=== PATIENT | female | born 1980 ===

== ENCOUNTER 2023-03-04 12:52 | Outpatient (REF) | payer MEDICAID, OTHER, SELFPAY ==
[2023-03-04 15:54] LABS: MANUAL DIFF FLAG NO
[2023-03-04 16:13] LABS: Basophils Percent Auto 0.6 % (0-2); Eosinophils Absolute Auto 0.2 X10*3/uL (0.0-0.4); Eosinophils Percent Auto 4.1 % (0-4); Hematocrit 39.4 % (37.0-47.0); Hemoglobin 13.2 g/dl (12.0-16.0); Imm Gran Abs Auto 0.01 X10*3/uL (0.00-0.03); Imm Gran Pct Auto 0.2 % (0.0-0.4); Lymphocytes Absolute Auto 2.1 X10*3/uL (1.2-4.9); Lymphocytes Percent Auto 43.7 % (20-40); Mean Corpuscular HGB Conc 33.5 g/dl (31.0-35.0); Mean Corpuscular Hemoglobin 33.2 pg (27.0-33.0); Mean Platelet Volume 12.4 fL (9.4-12.3); Monocytes Absolute Auto 0.5 X10*3/uL (0.1-1.2); Monocytes Percent Auto 11.1 % (2-11); Neutrophils Percent Auto 40.3 % (45-73); Platelet Count 159 X10*3/uL (160-400); Red Blood Count 3.98 X10*6/uL (4.20-5.50); Red Cell Distribution Width 10.7 % (11.0-16.0); White Blood Count 4.9 X10*3/uL (4.8-10.8)
[2023-03-04 16:36] LABS: Alanine Aminotransferase 15 U/L (0-31); Albumin Level 4.3 g/dL (3.5-5.0); Alkaline Phosphatase 67 U/L (39-117); Anion Gap 13 (12-20); Aspartate Amino Transferase 24 U/L (5-31); Bilirubin Total 0.4 mg/dL (0.0-1.0); Blood Urea Nitrogen 10 mg/dL (9-16); Carbon Dioxide 25 mmol/L (22-29); Chloride 105 mmol/L (96-108); Estimated Glomerular Filt Rate > 60; Glucose Random 98 mg/dL (60-115); Potassium 3.9 mmol/L (3.3-5.1); Sodium 139 mmol/L (135-145); TSH reflex Free T4 1.72 uIU/mL (0.32-4.0); Total Protein 7.4 g/dL (6.5-8.0)
[2023-03-07 08:09] LABS: Absolute CD3 Count 1592 cells/uL (840-3060); Absolute CD4 Count 603 cells/uL (490-1740); Absolute CD8 Count 966 cells/uL (180-1170); Absolute Lymphocytes 1967 cells/uL (850-3900); CD4 CD8 Ratio 0.62 (0.86-5.00); Percent CD3 Cells 81 % (57-85); Percent CD4 Cells 31 % (30-61); Percent CD8 Cells 49 % (12-42)
[2023-03-07 19:33] LABS: Mumps Virus IgG Antibody >300.00 AU/mL; Rubeola IgG (Measles) >300.00 AU/mL
[2023-03-09 19:48] LABS: HIV RNA PCR Qn Copies <20 DETECTED copies/mL (NOT DETECTED); HIV RNA PCR Qn Log Copies <1.30 DETECTED (NOT DETECTED)
== END 2023-03-04 12:53 | disposition home or self-care (01) ==
LOC: HO.HHCL 12:52
PROVIDERS: Visit Provider Internal Medicine
DX: B20 Human immunodeficiency virus [HIV] disease (principal)
CPT/HCPCS: 36415; 80053; 84443; 85025; 86359; 86360; 86735; 86762; 86765; 86787; 87536

== ENCOUNTER 2024-02-16 09:38 | Outpatient (REF) | payer MEDICAID, OTHER, SELFPAY ==
[2024-02-16 11:10] LABS: MANUAL DIFF FLAG NO
[2024-02-16 11:19] LABS: Basophils Percent Auto 0.6 % (0-2); Eosinophils Absolute Auto 0.2 X10*3/uL (0.0-0.4); Eosinophils Percent Auto 3.6 % (0-4); Hematocrit 38.4 % (37.0-47.0); Hemoglobin 12.9 g/dl (12.0-16.0); Imm Gran Abs Auto 0.01 X10*3/uL (0.00-0.03); Imm Gran Pct Auto 0.2 % (0.0-0.4); Lymphocytes Absolute Auto 1.3 X10*3/uL (1.2-4.9); Lymphocytes Percent Auto 25.3 % (20-40); Mean Corpuscular HGB Conc 33.6 g/dl (31.0-35.0); Mean Corpuscular Hemoglobin 33.6 pg (27.0-33.0); Mean Platelet Volume 12.5 fL (9.4-12.3); Monocytes Absolute Auto 0.9 X10*3/uL (0.1-1.2); Monocytes Percent Auto 17.5 % (2-11); Neutrophils Absolute Auto 2.7 x10*3/uL (2.0-8.3); Neutrophils Percent Auto 52.8 % (45-73); Platelet Count 149 X10*3/uL (160-400); Red Blood Count 3.84 X10*6/uL (4.20-5.50); Red Cell Distribution Width 10.8 % (11.0-16.0)
[2024-02-16 11:57] LABS: Alanine Aminotransferase 13 U/L (0-31); Albumin Level 4.3 g/dL (3.5-5.0); Alkaline Phosphatase 72 U/L (39-117); Anion Gap 13 (12-20); Aspartate Amino Transferase 19 U/L (5-31); Bilirubin Total 0.5 mg/dL (0.0-1.0); Blood Urea Nitrogen 11 mg/dL (9-16); Calcium 9.5 mg/dL (8.4-10.2); Carbon Dioxide 22 mmol/L (22-29); Chloride 108 mmol/L (96-108); Cholesterol 145 mg/dL (<200); Estimated Glomerular Filt Rate > 60; Glucose Random 94 mg/dL (60-115); HDL Cholesterol 44 mg/dL (>40); LDL Cholesterol Calculated 90 mg/dL (<100); Potassium 3.9 mmol/L (3.3-5.1); Sodium 139 mmol/L (135-145); Total Protein 7.2 g/dL (6.5-8.0); Triglycerides 56 mg/dL (<150)
[2024-02-16 12:06] LABS: Reflex LDLD? No
[2024-02-18 15:12] LABS: HIV RNA PCR Qn Copies NOT DETECTED copies/mL (NOT DETECTED); HIV RNA PCR Qn Log Copies NOT DETECTED (NOT DETECTED)
[2024-02-18 22:08] LABS: TS Negative Control Passed; TS Panel A 4; TS Panel B 2; TS Positive Control Passed; TSpotTB Negative (Negative)
[2024-02-19 18:09] LABS: Absolute CD3 Count 966 cells/uL (840-3060); Absolute CD4 Count 391 cells/uL (490-1740); Absolute CD8 Count 551 cells/uL (180-1170); Absolute Lymphocytes 1239 cells/uL (850-3900); CD4 CD8 Ratio 0.71 (0.86-5.00); Percent CD3 Cells 78 % (57-85); Percent CD4 Cells 32 % (30-61); Percent CD8 Cells 44 % (12-42)
[2024-02-22 11:49] LABS: RPR Rapid Plasma Reagin NON-REACTIVE (NON-REACTIVE)
== END 2024-02-16 09:39 | disposition home or self-care (01) ==
LOC: HO.HHCL 09:38
PROVIDERS: Visit Provider Internal Medicine
DX: B20 Human immunodeficiency virus [HIV] disease (principal)
CPT/HCPCS: 36415; 80053; 80061; 85025; 86359; 86360; 86481; 86592; 87536

== ENCOUNTER 2024-08-13 11:00 | Outpatient (REF) | payer MEDICAID, OTHER, SELFPAY ==
--- OUTSIDE RECORDS SUMMARY | 2024-08-13 12:40 | XMS_ITS | Encounter Summary ---
Author Organization [facility] and [facility] Address [address] [place] [address] Care Team Providers Care Correctional Manager Name Role Phone Diallo Her MD Primary Care Provider [phone] Reason for Visit * Reason Comments Medication Refill Encounter Details Date Type Department Care Team ([facility] st Contact Info) Description 06/16/2022 Refill [facility] [address] [address] Peyton Wang, PHYSICIST [employer] [address] [place] [address] Medication Refill Social History Tobacco Use Types Packs/Day Years Used Date Smoking Tobacco: Never Alcohol Use Standard Drinks/Week Comments Never 0 (1 standard drink = 0.6 oz pur e alcohol) Overall Financial Resource Strain (CARDIA) Answe r Date Recorded How hard is it for you to pa y for the very basics like food, housing, medical care, and heating? Hard 04/27/2022 Hunger Vital Sign Answer Date Recorded Within the past 12 months, y ou worried that your food would run out before you got the money to buy more. Never true 04/27/20 22 Within the past 12 months, t he food you bought just didn't last and you didn't have money to get more. Never true 04/27/2022 PRAPARE - Transportation Answer Date Re corded In the past 12 months, has l ack of transportation kept you from medical appointments or from getting medications? No 01/2022 In the past 12 months, has l ack of transportation kept you from meetings, work, or from getting things needed for daily living? No 04/27/2022 Housing Stability Answer Date Recorded Housing Stability I have a steady place to live 04/27/2022 Comments No Sex and Gender Information Value Date Recorded Sex Assigned at Not on file Legal Sex Female 1:47 PM EDT Gender Identity Not on file Sexual Orientation Not on file COVID-19 Exposure Response Date Recorded In the last 10 days, have yo u been in contact with someone who was confirmed or suspected to have Coronavirus/COVID-19? No / Unsure 06/03/2022 3:25 PM EST documented as of this encounter Plan of Treatment Not on file documented as of this encounter Visit Diagnoses Diagnosis Asymptomatic HIV infection, with no history of HIV-related illness (HC Code) (HC CODE) (HC Code) documented in this encounter Care Teams Correctional Manager Relationship Specialty Start Date End Date Diallo Her MD [address] [place] [phone] PCP - General Internal Medicine 04/27/22 09/05/22 documented as of this encounter
--- OUTSIDE RECORDS SUMMARY | 2024-08-13 12:40 | XMS_ITS | Clinical Summary ---
Author Organization [address] Address [address] [place] [address] Care Team Providers Care Qual Field Manager Name Role Phone Unavailable Primary Care Provider Unavailabl e Allergies No known active allergies Medications isoniazid (NYDRAZID) 300 mg tabletIndications :LTBI (latent tuberculosis infection) Take 1 tablet (300 mg total) by mouth daily. 30 tablet 4 06/29/2022 Active bictegravir-emtri citabine-tenofovi r alafenamide (BIKTARVY) 50-200-25 mg tabletIndications :HIV infection, unspecified symptom status (HC Code) Take 1 tablet by mouth daily. 30 tablet 3 06/29/2022 Active pyridoxine, vitamin B6, (B-6) 50 mg tabletIndications :LTBI (latent tuberculosis infection) TAKE 1 TABLET BY MOUTH EVERY DAY 30 tablet 2 10/01/2022 Active Active Problems Problem Noted Date Diagnosed Date Positive QuantiFERON-TB Gold test,cxr neg 05/1105/03/2022 Overview (06/29/2022): Treat as LTBI , started INH 300 mg daily 06/29/22 HIV infection, unspecified s ymptom status (HC Code) (HC CODE) (HC Code) diagnosed in [facility] in 201604/27/2022 Overview (05/25/2022): Tested + in [facility] in 2017 during [facility], has been on Dolutegravir, lamivudine,tDF since. 05/11 viral load undet, Cd4 570. CADAP granted. Started Sebastien Mckeon 05/20/22. History of pneumonia 04/27/2022 Language barrier: THERE IS N O CITY ASSESSOR AVAILABLE VIA [employer] OR [employer]ANGUAGE LINE, HER COUSIN CAN TRANSLATE FOR HER 04/27/2022 Dental decay 04/27/2022 Immunizations Name Administration Dates Next Due COVID-19, PFIZER Bivalent, 12 Yrs+, 0.3mL 2021 Hep B, adult (Engerix/Recombivax) 07/29/2022 Influenza, injectable, quadrivalent, preservativ e free 04/27/2022 Pneumococcal conjugate 20 valent (PCV20) 022 Tdap 07/29/2022 Family History Medical History Relation Name Comments No Known Problems Mother Breast cancer Neg Hx Colon cancer Neg Hx Diabetes Neg Hx Heart disease Neg Hx Ovarian cancer Neg Hx Stroke Neg Hx Relation Name Status Comments Father Alive Mother Alive Social History Tobacco Use Types Packs/Day Years Used Date Smoking Tobacco: Never Tobacco Cessation:Counseling Given: Not Answered Alcohol Use Standard Drinks/Week Comments Never 0 (1 standard drink = 0.6 oz pur e alcohol) Overall Financial Resource Strain (CARDIA) Answe r Date Recorded How hard is it for you to pa y for the very basics like food, housing, medical care, and heating? Hard 04/27/2022 PHQ-2 Answer Date Recorded PHQ-2 Total Score 0 07/29/2022 Hunger Vital Sign Answer Date Recorded Within [...] have a steady place to live 04/27/2022 Interpersonal Safety Answer Date Record ed Is there anyone in your life that is hurting or threatening you in anyway? Not on file 06/29/2022 Physical Indicators of Abuse No evidence of phys ical abuse 06/29/2022 Comments No Sex and Gender Information Value Date Recorded Sex Assigned at Not on file Legal Sex Female 1:47 PM EDT Gender Identity Not on file Sexual Orientation Not on file Last Filed Vital Signs Vital Sign Reading Time Taken Comments Blood Pressure 117/73 07/29/2022 11:22 AM EST Pulse 73 07/29/2022 11:22 AM EST Temperature 36.6 ??C (97.8 ??F) 07/29/2022 11:[address] Respiratory Rate 18 06/03/2022 3:24 PM EST Oxygen Saturation 100% 07/29/2022 11:22 AM EST Inhaled Oxygen Concentration - - Weight 47.8 kg (105 lb 6.4 oz) 07/29/2022 11:22 AM EST Height 149.9 cm (4' 11 ) 07/29/2022 11:22 AM EST Body Mass Index 21.29 07/29/2022 11:22 AM EST Plan of Treatment Health Maintenance Due Date Last Done Comments Meningococcal Vaccine (1 - R isk 2-dose series) 08/25/1983 Breast cancer screening 2021 Lipid disorder screening 2021 Influenza vaccine 01/19/2024 04/27/2022 Covid-19 vaccine series ( season) 2024 05/25/2022 Cervical cancer screening 06/03/2027 06/03/2022 Tetanus adult (Td q 10,TDAP once) 07/29/2032 023 RSV Discussion (1 - 1-dose 7 5+ series) 2056 Hepatitis C screening Completed 04/27/2022 Pneumococcal Vaccine (2 - 49 years) Completed 05/25/2022 HIV screening Completed 07/29/2022, 06/20, 06/22/2022, Additional history exists Procedures Procedure Name Priority Date/Time Associated Diagnosis Comments CYTOLOGY HAMMER RUNNER CASES (Y) Routine 06/03/2022 12:00 AM EST HIV-1/HIV-2 ANTIBODY/ANTIGEN SCREEN W/REFLEX (BH GH LMW YH) Routine 04/27/2022 11:14 AM EST HIV infection, unspecified symptom status (HC Code) (HC CODE) (HC Code) HEPATITIS C AB WITH REFLEX TO HCV PCR Routine 04/27/2022 11:14 AM EST HIV infection, unspecified symptom status (HC Code) (HC CODE) (HC Code) from Last 3 Months or Most Recently Relevant to Health Maintenance Results * Cytology roller stitcher cases (Y) (06/03/2022 12:00 AM EST) Cytology Ticketer Cases ?CYTOLOGY REPORT ? Procedures/Addenda Attached Patient: LUZ MARIA ABDI ?MR #: [id number] ?Submitted by: Mila Lugo APRN FINAL DIAGNOSIS SUREPATH PAP SMEAR: ? Primary Diagnosis: ? NEGATIVE FOR INTRAEPITHELIAL LESION OR MALIGNANCY. ? Additional Findings: ENDOCERVICAL/TRANS FORMATION ZONE COMPONENT PRESENT. ? CELLULAR FEATURES CONSISTENT WITH INFLAMMATION RELATED CHANGES. ? HIGH RISK HPV CO-TESTING HAS BEEN PERFORMED AND THE RESULT IS NEGATIVE. Specimen Adequacy: THIS SPECIMEN IS SATISFACTORY FOR EVALUATION. ? This specimen was manually screened with the assistance of the BD FocalPoint? ? [employer] System. NOTE: ??Cervical/vaginal cytology is a screening tool for cervical carcinoma and its precursor lesions with an inherent false negative rate. ??It is an inaccurate test for detection of endometrial lesions and should not be used to evaluate suspected endometrial abnormalities. ??(The [place] System, 2001) ?? 06/11/2022 09:50 ?* Report Electronically Signed Out * ? This electronic signature indicates that the pathologist has personally reviewed the available gross and/or microscopic material and has based the diagnosis on that evaluation. ? Specimen(s) Received: SUREPATH PAP SMEAR Clinical History and Impression: Screening co-testing hrHPV requested by lilia gordon Date of LMP: 05/09/2022 ?? Procedures/Addenda MOLECULAR DX: HR HPV SCREENING ?Pathologist: ? [facility] ? Status: ??Signed Out ? Ordered: ? 06/04/2022 ?Reported: ? 06/07/2022 08:51 ? Interpretation Specimen: SUREPATH PAP SMEAR BELOW CUTOFF FOR HIGH RISK HPV HPV types 16, 18, 31, 33, 35, 39, 45, 51, 52, 56, 58, 59, 66, and 68 DNA were either considered NEGATIVE, undetectable,or below the pre-set threshold. Note: Cut off ranges for HR HPV values have been determined by [facility] and found to be POSITIVE for OTHER HR HPV types and HPV type [address] Value is = 40.0 and for HPV type [address] value is = 40.5. ??Cut off ranges for HR HPV values have been determined by [facility] and found to be NEGATIVE for OTHER HR HPV types and HPV type [address] value is > 40.[address] value is > 40.5 for HPV type 16. This test was performed at [facility] Department of Pathology, [address] [place] [address], CLIA# [id number] using the [facility] brii 4800 HPV Test System and is only approved by the Food and Drug Administration (FDA) for use oncervicalspecimen s collected in Cytyc Preservcyt Solution (ThinPrep). When using ThinPrep liquid based samples for non-cervical specimens, SurePath liquid based samples, or formalin fixed paraffin embedded tissue, the performance characteristics have been determined by [facility]. Although testing on samples that are not cervical in origin, and/or in any other medium besides ThinPrep, has not been cleared or approved by the FDA, the FDA has determined that such clearance or approval is not necessary. ? [facility] Cervical Tracking Result Non-Tracking [facility] High Risk HPV Screening Non-Tracking [facility] 06/03/2022 Comment:SUREPATH PAP SMEAR+ HPV us Mila Lugo TIMBER MANAGEMENT SPECIALIST PATHOLOGY/CYTOLOGY ORDERABLES Final Result Performing Organization Address City/[facility]/ZIP Co de Phone Number [facility] Department of Pathology [address] [place] [address] [phone] [place] [address] * (ABNORMAL) HIV-1/HIV-2 antibody/antigen screen w/reflex ( GH LMW YH) (04/27/2022 11:14 AM EST) HIV 1 and 2 Antibody/Anti gen Screen Repeatedly Reactive(A) Non-React anthony 04/27/2022 2:27 PM [facility] Blood Venipuncture / Unknown 04/27/2022 11:14 AM EST 04/27/2022 11:24 AM EST us Peyton Wang NP LAB BLOOD ORDERABLES Joanne l Result Performing Organization Address City/[facility]/ZIP Co de Phone Number [address] [phone] * Hepatitis C Ab with reflex to HCV PCR (04/27/2022 11:14 AM EST) Hepatitis C Ab Initial Result 0.03 S/CO 04/27/2022 12:44 PM [facility] Hepatitis C Ab Interpretation Non-React anthony Non-React anthony 04/27/2022 12:44 PM [facility] Blood Venipuncture / Unknown 04/27/2022 11:14 AM EST 04/27/2022 11:24 AM EST us Peyton Wang NP LAB BLOOD ORDERABLES [place] [address], [facility] [phone] from Last 3 Months or Most Recently Relevant to Health Maintenance
--- OUTSIDE RECORDS SUMMARY | 2024-08-13 12:40 | XMS_ITS | Encounter Summary ---
Author Organization [facility] and [facility] Address [address] [place] [address] Care Team Providers Care Radio Survey Worker Name Role Phone Diallo Her MD Primary Care Provider Reason for Visit * Reason Onset Date Comments Medication Refill 06/14/2022 Encounter Details Date Type Department Care Team (Late st Contact Info) Description 06/14/2022 Refill [facility] [address] [address] Peyton Wang, TRA[address] REFEREE [address] [place] [address] Medication Refill Social History Tobacco [...] Code) documented in this encounter Care Teams Radio Survey Worker Relationship Specialty Start Date End Date Diallo Her MD [address] [place] [phone] PCP - General Internal Medicine 04/27/22 09/05/22 documented as of this encounter
--- OUTSIDE RECORDS SUMMARY | 2024-08-13 12:40 | XMS_ITS | Encounter Summary ---
Author Organization [facility] and [facility] Address [address] [place] [phone] Care Team Providers Care Consulting Technical Manager Name Role Phone Diallo Her MD Primary Care Provider [phone] Encounter Details Date Type Department Care Team ([facility] [address] Contact Info) Description 08/26/2022 Scanned Document INTERFACE DEFAULT [address] [place] [phone] System, Provider Not In Social History Tobacco Use Types Packs/Day Years [...] on file Sexual Orientation Not on file documented as of this encounter Plan of Treatment Not on file documented as of this encounter Visit Diagnoses Not on filedocumented in this encounter Additional Health Concerns Assessment Noted Time PHQ-9 Depression Total Score: 0 07/29/19 23 11:30 AM EST documented as of this encounter Care Teams Consulting Technical Manager Relationship Specialty Start Date End Date Diallo Her MD [address] [place] [phone] PCP - General Internal Medicine 04/27/22 09/05/22 documented as of this encounter
--- OUTSIDE RECORDS SUMMARY | 2024-08-13 12:40 | XMS_ITS | Encounter Summary ---
Author Organization [facility] [facility] and [facility] Address [address] [place] [address] Care Team Providers Care Manager Plant Name Role Phone Unavailable Primary Care Provider Unavailabl e Reason for Visit * Reason Comments Results FYI Encounter Details Date Type Department Care Team ([facility] st Contact Info) Description 09/06/2022 Telephone [facility] [address] [address] Diallo Her MD [address] [place] [address] Results; FYI Social History Tobacco Use Types Packs/Day Years [...] on file documented as of this encounter Miscellaneous Notes * Telephone Encounter - Rachelle Ramos RN - 09/06/2022 2:07 PM EDT Called and spoke with Anali at [facility] dept She is following up on pts HIV status Provided her with most recent lab results, last appt and medication therapy Confirmed address and telephone # as listed in EMR Advised her that 09/09 was cancelled as per clerical note , unclear if pt is changing providers Anali requests callback from mortgage loan officer originator to confirm if possible routing to [facility] * Telephone Encounter - Monet Adam - 09/06/2022 12:08 PM EDT [facility] requesting a call back regarding recent Positive Lab result's documented in this encounter Plan of Treatment Not on file documented as of this encounter Visit Diagnoses Not on filedocumented in this encounter Additional Health Concerns Assessment Noted Time PHQ-9 Depression Total Score: 0 07/29/19 23 11:30 AM EST documented as of this encounter
--- OUTSIDE RECORDS SUMMARY | 2024-08-13 12:40 | XMS_ITS | Encounter Summary ---
Author Organization [facility] and [facility] Address [address] [place] [address] Care Team Providers Care Manager Home Improvement Name Role Phone Unavailable Primary Care Provider Unavailabl e Encounter Details Date Type Department Care Team (Late st Contact Info) Description 09/06/2022 Telephone [facility]ICAL CLINIC [address] [place] [address] Diallo Her MD [address] [place] [phone] Social History Tobacco Use Types Packs/Day Years [...]
[2024-08-13 13:46] LABS: MANUAL DIFF FLAG NO
[2024-08-13 13:55] LABS: Basophils Percent Auto 0.8 % (0-2); Eosinophils Absolute Auto 0.1 X10*3/uL (0.0-0.4); Eosinophils Percent Auto 2.4 % (0-4); Hematocrit 40.2 % (37.0-47.0); Hemoglobin 13.5 g/dl (12.0-16.0); Lymphocytes Absolute Auto 2.1 X10*3/uL (1.2-4.9); Lymphocytes Percent Auto 56.6 % (20-40); Mean Corpuscular HGB Conc 33.6 g/dl (31.0-35.0); Mean Corpuscular Hemoglobin 33.3 pg (27.0-33.0); Mean Corpuscular Volume 99.3 fL (80.0-98.0); Mean Platelet Volume 12.5 fL (9.4-12.3); Monocytes Absolute Auto 0.4 X10*3/uL (0.1-1.2); Monocytes Percent Auto 9.5 % (2-11); Neutrophils Absolute Auto 1.2 x10*3/uL (2.0-8.3); Neutrophils Percent Auto 30.7 % (45-73); Platelet Count 172 X10*3/uL (160-400); Red Blood Count 4.05 X10*6/uL (4.20-5.50); White Blood Count 3.8 X10*3/uL (4.8-10.8)
[2024-08-13 14:01] LABS: Alanine Aminotransferase 19 U/L (0-31); Albumin Level 4.5 g/dL (3.5-5.0); Alkaline Phosphatase 64 U/L (39-117); Anion Gap 13 (12-20); Aspartate Amino Transferase 26 U/L (5-31); Bilirubin Total 0.7 mg/dL (0.0-1.0); Blood Urea Nitrogen 14 mg/dL (9-16); Calcium 9.9 mg/dL (8.4-10.2); Carbon Dioxide 24 mmol/L (22-29); Chloride 108 mmol/L (96-108); Estimated Glomerular Filt Rate > 60; Glucose Random 89 mg/dL (60-115); Potassium 4.1 mmol/L (3.3-5.1); Sodium 141 mmol/L (135-145)
[2024-08-16 17:33] LABS: HIV RNA PCR Qn Copies NOT DETECTED copies/mL (NOT DETECTED); HIV RNA PCR Qn Log Copies NOT DETECTED (NOT DETECTED)
[2024-08-16 18:03] LABS: Absolute CD3 Count 1541 cells/uL (840-3060); Absolute CD4 Count 623 cells/uL (490-1740); Absolute CD8 Count 924 cells/uL (180-1170); Absolute Lymphocytes 1851 cells/uL (850-3900); CD4 CD8 Ratio 0.67 (0.86-5.00); Percent CD3 Cells 83 % (57-85); Percent CD4 Cells 34 % (30-61); Percent CD8 Cells 50 % (12-42)
== END 2024-08-13 11:01 | disposition home or self-care (01) ==
LOC: HO.HHCL 11:00
PROVIDERS: Visit Provider Internal Medicine
DX: Z21 Asymptomatic human immunodeficiency virus [HIV] infection status (principal)
CPT/HCPCS: 36415; 80053; 85025; 86359; 86360; 87536

== ENCOUNTER 2025-02-07 10:45 | Outpatient (REF) | payer MEDICAID, OTHER, SELFPAY ==
[2025-02-07 11:31] LABS: MANUAL DIFF FLAG NO
[2025-02-07 11:39] LABS: Hematocrit 40.0 % (37.0-47.0); Hemoglobin 13.2 g/dl (12.0-16.0); Imm Gran Abs Auto 0.01 X10*3/uL (0.00-0.03); Imm Gran Pct Auto 0.3 % (0.0-0.4); Lymphocytes Absolute Auto 1.3 X10*3/uL (1.2-4.9); Mean Corpuscular HGB Conc 33.0 g/dl (31.0-35.0); Mean Corpuscular Hemoglobin 33.0 pg (27.0-33.0); Mean Corpuscular Volume 100.0 fL (80.0-98.0); NRBC Abs Auto 0.000 X10*3/uL (0.0-0.012); NRBC Pct Auto 0.0 /100WBC (0.0-0.2); Platelet Count 167 X10*3/uL (160-400); Red Blood Count 4.00 X10*6/uL (4.20-5.50); White Blood Count 3.5 X10*3/uL (4.8-10.8)
[2025-02-07 12:06] LABS: Alanine Aminotransferase 20 U/L (0-31); Albumin Level 4.7 g/dL (3.5-5.0); Alkaline Phosphatase 69 U/L (39-117); Anion Gap 10 (12-20); Aspartate Amino Transferase 24 U/L (5-31); Blood Urea Nitrogen 12 mg/dL (9-16); Calcium 9.2 mg/dL (8.4-10.2); Carbon Dioxide 27 mmol/L (22-29); Chloride 107 mmol/L (96-108); Cholesterol 188 mg/dL (<200); Estimated Glomerular Filt Rate > 60; HDL Cholesterol 48 mg/dL (>40); Potassium 4.1 mmol/L (3.3-5.1); Sodium 140 mmol/L (135-145); Total Protein 7.3 g/dL (6.5-8.0); Triglycerides 98 mg/dL (<150)
--- OUTSIDE RECORDS SUMMARY | 2025-02-07 12:16 | XMS_ITS | Clinical Summary ---
Author Organization [facility] Address [address] [address] Phone Care Team Providers Care Quality Assurance Monitor Body Name Role Phone Unavailable Primary Care Provider Unavailabl e Social History Tobacco Use Types Packs/Day Years Used Date Smoking Tobacco: Never Assessed Comments Unknown Sex and Gender Information Value Date Recorded Sex Assigned at Not on file Legal Sex Female 7:53 AM EDT Gender Identity Not on file Sexual Orientation Not on file Plan of Treatment Not on file Medical Devices Not on file Additional Source Comments The information contained in this document represents components of the legal health record. It is not the complete legal health record.[facility]
--- OUTSIDE RECORDS SUMMARY | 2025-02-07 12:16 | XMS_ITS | Encounter Summary ---
Author Organization [facility] and [facility] Address [address] [place] [phone] Care Team Providers Care Banquet Kitchen Supervisor Name Role Phone Diallo Her MD Primary Care Provider [phone] Encounter Details Date Type Department Care Team ([facility] Contact Info) Description 08/26/2022 Scanned Document INTERFACE DEFAULT [address] [place] [phone] System, Provider Not In Social History Tobacco [...] documented as of this encounter Care Teams Banquet Kitchen Supervisor Relationship Specialty Start Date End Date Diallo Her MD [address] [place] [phone] PCP - General Internal Medicine 04/27/22 09/05/22 documented as of this encounter
[2025-02-07 12:27] LABS: Syphilis Screen Nonreactive (Nonreactive)
[2025-02-07 12:28] LABS: ~HepC Num1 0.11 S/CO (0.00-0.79); ~Hepatitis C Antibody Nonreactive (Nonreactive)
[2025-02-07 14:04] LABS: Reflex LDLD? No
[2025-02-08 13:49] LABS: HIV RNA PCR Qn Copies NOT DETECTED copies/mL (NOT DETECTED); HIV RNA PCR Qn Log Copies NOT DETECTED (NOT DETECTED)
[2025-02-10 08:33] LABS: TS Negative Control Passed; TS Panel A 0; TS Panel B 2; TS Positive Control Passed; TSpotTB Negative (Negative)
[2025-02-12 13:32] LABS: Absolute CD3 Count 1199 cells/uL (840-3060); Absolute CD8 Count 653 cells/uL (180-1170); Percent CD3 Cells 85 % (57-85); Percent CD8 Cells 46 % (12-42)
== END 2025-02-07 10:46 | disposition home or self-care (01) ==
LOC: HO.HHCL 10:45
PROVIDERS: PCP Internal Medicine; Visit Provider Internal Medicine
DX: Z21 Asymptomatic human immunodeficiency virus [HIV] infection status (principal); Z11.1 Encounter for screening for respiratory tuberculosis; Z11.4 Encounter for screening for human immunodeficiency virus [HIV]; Z11.3 Encounter for screening for infections with a predominantly sexual mode of transmission; Z11.59 Encounter for screening for other viral diseases
CPT/HCPCS: 36415; 80053; 80061; 85025; 86359; 86360; 86481; 86780; 86803; 87536